=== PATIENT | female | born 1995 | race Caucasian/White ===

== ENCOUNTER 2024-04-18 16:39 | Emergency (ER) | payer OTHER, SELFPAY ==
[2024-04-18 16:46] VITALS: BP 127/83
[2024-04-18 17:05] VITALS: BP 117/87
[2024-04-18 17:07] VITALS: BMI 26.2
[2024-04-18 17:16] LABS: % Basophils 0.8 % (0-2); % Eosinophils 2.7 % (0-6); % Immature Granulocytes 0.3 % (0-0.5); % Lymphocytes 34.8 % (20.5-51.1); % Monocytes 4.3 % (1.7-9.3); % Neutrophils 57.1 % (42.2-75.2); Absolute Basophils 0.1 10^3/uL (0-0.2); Absolute Eosinophils 0.3 10^3/uL (0-0.7); Absolute Lymphocytes 3.6 10^3/uL (1.2-3.4); Absolute Monocytes 0.5 10^3/uL (0.1-0.6); Absolute Neutrophils 5.9 10^3/uL (1.4-6.5); Hematocrit 40.3 % (37.0-47.0); Hemoglobin 14.3 g/dL (12.0-16.0); Mean Corp Hgb Conc. 35.5 g/dL (33.0-37.0); Mean Corpuscular Hgb 30.2 pg (27.0-31.0); Mean Corpuscular Volume 85.2 fL (81.0-99.0); Mean Platelet Volume 10.2 fL (7.4-10.4); Nucleated Red Blood Cells % 0 %; Platelet Count 314 10^3/uL (130-400); Red Blood Cell Count 4.73 10^6/uL (4.20-5.40); Red Cell Dist. Width 12.4 % (11.5-14.5); White Blood Cell Count 10.4 10^3/uL (4.8-10.8)
--- NOTE | 2024-04-18 17:19 | ED.GENMED ---
History of Present Illness
General
Chief Complaint: Cardiac Symptoms
Source: patient
Time Seen by Provider: 04/18/24 16:50
History of Present Illness
History of Present Illness:
This patient is a 28-year-old female who is rewiring her outlets at around 3:15 PM and was shocked x 2. She immediately dropped the wires, and noted tingling in her fingers and arms bilaterally which is now fully resolved. She denies associated
chest pain, palpitations, dyspnea, abdominal pain, neck pain, headache, dizziness, weakness, or other complaints. Patient went to an urgent care and was told her ECG was abnormal which prompted her visit here.
Past History
Past History
ED Past Medical History: Psychiatric
ED Past Surgical History: None
Social History
Tobacco: Non-smoker
Alcohol: None
Drug: None
Personal:
Living: with family
Phy Exam
Physical Exam
Physical Exam:
GENERAL: Alert , in no apparent distress
EYE: pupils equal and reactive
NECK: Supple, no significant adenopathy.
ENT: o/p clr, mmm.
CARDIAC: Regular rate and rhythm .
LUNGS: Clear breath sounds bilaterally, no acute respiratory distress, no wheezes/rales/rhonchi
ABDOMEN: Soft, without focal tenderness, no r/g, no cvat
NEUROLOGICAL: Alert and oriented, no focal neuro deficits
SKIN: Warm and dry, skin intact.
MUSCULOSKELETAL: No edema, well perfused.
PSYCH: Normal and appropriate interaction.
Course
Orders/Labs/Results
Orders:
Orders
04/18/24 16:41
EKG [Electrocardiogram (*1)] Urgent
Reason for Study: Other
Other Reason for Exam: abnormal EKG
EKG- Treatment ONCE
04/18/24 17:08
Complete Blood Count/With Diff Urgent
Comprehensive Metabolic Panel Urgent
Troponin I Urgent
Abnormal Lab Results
04/18/24
17:08
Absolute Lymphs (auto) 3.6 H 10^3/uL
(1.2-3.4)
Glucose 120 H mg/dl
(70-99)
Total Protein 8.4 H g/dl
(6.3-8.2)
04/18/24 17:08
04/18/24 17:08
Vital Signs
Initial and Last Documented VS:
Initial Vital Signs
Temp Pulse Resp BP Pulse Ox
98.9 F 95 18 127/83 99
04/18/24 16:46 04/18/24 16:46 04/18/24 16:46 04/18/24 16:46 04/18/24 16:46
Last Documented Vital Signs
Temp Pulse Resp BP Pulse Ox
98.9 F 80 25 117/87 98
04/18/24 16:46 04/18/24 17:45 04/18/24 17:45 04/18/24 17:05 04/18/24 17:53
*Critical Care Note
Total Time (30-74mins, 75-104mins- exclusive of procedures): Not Applicable
Update Note
Update Note:
Patient presents to the Emergency Department with _electrocution
Number and Complexity of Problems Addressed at the Encounter
� Chronic conditions affecting care:
� Acute Exacerbation and/or Progression of Chronic Illness:
� Differential Diagnosis includes: But not limited to peripheral nerve injury, myocardial damage, skin injury, etc.
Amount and/or Complexity of Data to be Reviewed and Analyzed
� I performed an independent evaluation of and my interpretation is:
EKG: Read by me, normal sinus rhythm, normal rate, questionable very very subtle ST depressions laterally
CT:
Xrays:
Laboratory Studies: Unremarkable
Other:
� Review of other/old records reveals:
� Clinical information was obtained by an independent historian:
� Prescriptions/Medications Considered but not given:
� Further testing considered but not performed: Given household current low risk for serious injury.
Risk of Complications and/or Morbidity or Mortality of Patient Management
� Social determinants of health affecting care:
� Discussion with other providers (PCP, Hospitalists, Consultants, etc):
� Escalation of care including admission/observation vs risk of discharge considered: Patient has remained stable here normal vital signs asymptomatic. First ECG with questionable very subtle ST abnormalities however repeat ECG
without suspicion for similar depression. Suspect likely related to artifact particular given lack of patient's risk factors or typical history. Patient given copy of ECG and recommended to follow-up as an outpatient
ED Attending Note
-
Portions of this chart may have been created with voice recognition software.� Occasional wrong word or��sound alike� substitutions may have occurred due to the inherent limitations of voice recognition software.
Discharge Plan
Departure
Patient Disposition: Home (Routine Discharge)
Date of Disposition: 04/18/24
Time of Disposition: 18:14
Patient with high blood pressure during this ER visit?: Yes
Discharge Problem:
Electrocution
Instructions: Electrical Shock (DC), BLOOD PRESSURE
Referrals:
Allyson Burns CRNP [Family Provider] - As needed
Activity Restrictions/Additional Instructions:
IF YOU DEVELOP CHEST PAIN, TROUBLE BREATHING, FEVER, PALPITATIONS, DIZZINESS, OR OTHER WORRISOME SIGNS, GO TO THE ER IMMEDIATELY!
Interventions
Interventions:
*Risk Screen - Suicide Last Done: 04/18/24 17:09
*General Assessment Last Done: 04/18/24 17:09
*Neglect/Abuse Screening Last Done: 04/18/24 17:09
ED- Fall Risk Assessment Last Done: 04/18/24 17:15
*ED COVID-19 Vaccine History Last Done: 04/18/24 17:09
ED- Pulmonary Assessment Last Done: 04/18/24 17:15
ED- Cardiac Assessment Last Done: 04/18/24 17:15
Discharge Date and Time
Print Language: [id number]
[2024-04-18 17:30] LABS: ALT (SGPT) 17 U/L (0-35); AST (SGOT) 26 U/L (14-36); Alkaline Phosphatase 56 U/L (38-126); Blood Urea Nitrogen 14 mg/dl (7-17); Calcium 9.8 mg/dl (8.4-10.2); Carbon Dioxide 24 mmol/L (22-30); Chloride 103 mmol/L (98-107); Estimated Creatinine Clearance 117 ml/min; Glucose 120 mg/dl (70-99); Potassium 3.8 mmol/L (3.5-5.1); Sodium 142 mmol/L (135-145); Total Bilirubin 0.5 mg/dl (0.2-1.3); Total Protein 8.4 g/dl (6.3-8.2); eGFR > 60.00
[2024-04-18 17:39] LABS: Troponin I < 0.012 ng/ml
[2024-04-18 18:00] VITALS: BP 105/74
== END 2024-04-18 18:43 | disposition home or self-care (01) ==
LOC: EMR 16:39
PROVIDERS: EMERGENCY PHYSICIAN Emergency Medicine; FAMILY PHYSICIAN Nurse Practitioner
DX: T75.4XXA Electrocution, initial encounter (principal); W86.8XXA Exposure to other electric current, initial encounter
CPT/HCPCS: 99283; 80053; 84484; 85025; 93005

== ENCOUNTER → 2024-05-12 10:22 | Outpatient (REF) | payer OTHER, SELFPAY | LOC: HWRCS 10:22 | PROVIDERS: ATTENDING PHYSICIAN Internal Medicine Cardiovascular Disease; FAMILY PHYSICIAN Nurse Practitioner | DX: R06.02 Shortness of breath (principal) | CPT/HCPCS: 93306 ==